=== PATIENT | male | born 1955 | race African-American/Black ===

== ENCOUNTER 2021-12-23 15:42 | Observation (INO) | payer OTHER ==
[2021-12-23 17:10] LABS: BASO % 0.8 % (0-2.0); EOS % 4.4 % (0-4.5); HEMATOCRIT 45.3 % (35.4-49); HEMOGLOBIN 15.1 GM/dL (11.7-16.9); LYMPH % 24.4 % (8-40); MCH 28.9 pg (25.7-33.7); MCHC 33.3 g/dl (32.0-35.9); MEAN CELL VOLUME 86.8 fl (80-96); MEAN PLT VOLUME 7.8 fl (7.5-11.1); NEUT % 63.4 % (42.8-82.8); PLATELET COUNT 276 10^3/uL (134-434); RBC 5.21 M/mm3 (4.00-5.60); RDW 14.2 % (11.9-15.9); WHITE BLOOD COUNT 6.1 K/mm3 (4.0-10.0)
[2021-12-23 17:16] LABS: INR 1.17 (0.83-1.09); PROTHROMBIN TIME (PATIENT) 13.5 SEC (9.7-13.0)
[2021-12-23 17:19] LABS: ACTIVATED PTT 35.8 SECONDS (25.2-36.5)
[2021-12-23 17:28] LABS: CALCIUM 9.2 mg/dL (8.5-10.1)
[2021-12-23 17:29] LABS: ALBUMIN 3.8 g/dl (3.4-5.0); BLOOD UREA NITROGEN 12.2 mg/dL (7-18)
[2021-12-23 17:33] LABS: BILIRUBIN,TOTAL 0.2 mg/dL (0.2-1); TOT PROT 7.7 g/dl (6.4-8.2)
[2021-12-23] MEDS: ACETAMINOPHEN 325 MG TABLET (FP) PO PRN (22:34)
[2021-12-23 23:26] VITALS: BMI 28.1
[2021-12-24 08:43] LABS: BASO % 0.6 % (0-2.0); EOS % 6.2 % (0-4.5); HEMATOCRIT 43.9 % (35.4-49); HEMOGLOBIN 14.6 GM/dL (11.7-16.9); LYMPH % 30.1 % (8-40); MCH 28.7 pg (25.7-33.7); MCHC 33.2 g/dl (32.0-35.9); MEAN CELL VOLUME 86.4 fl (80-96); MEAN PLT VOLUME 8.3 fl (7.5-11.1); MONO % 7.3 % (3.8-10.2); NEUT % 55.8 % (42.8-82.8); PLATELET COUNT 275 10^3/uL (134-434); RBC 5.09 M/mm3 (4.00-5.60); WHITE BLOOD COUNT 5.6 K/mm3 (4.0-10.0)
[2021-12-24 09:09] LABS: CALCIUM 9.3 mg/dL (8.5-10.1)
[2021-12-24 09:10] LABS: ALBUMIN 3.4 g/dl (3.4-5.0); BLOOD UREA NITROGEN 12.4 mg/dL (7-18)
[2021-12-24 09:13] LABS: CREATININE 0.8 mg/dL (0.55-1.3)
[2021-12-24 09:14] LABS: BILIRUBIN,TOTAL 0.5 mg/dL (0.2-1); TOT PROT 6.8 g/dl (6.4-8.2)
[2021-12-24] MEDS: ASPIRIN 81 MG CHEWABLE TABLETS PO SCH (11:35)
[2021-12-24] MEDS ORDERED: BRIMONIDINE TARTRATE 0.15% OPHTHALMIC 5 ML BOTTLE OU SCH (14:15)
[2021-12-24] MEDS: amLODIPine BESYLATE 5 MG TABLET (FP) PO SCH (15:38)
[2021-12-24] MEDS: TAMSULOSIN HCL 0.4 MG CAP PO SCH (16:50)
[2021-12-24] MEDS: ATORVASTATIN CA 10 MG TABLET (FP) PO SCH (21:12)
[2021-12-24] MEDS: ACETAMINOPHEN 325 MG TABLET (FP) PO PRN (21:12)
[2021-12-24] MEDS: LATANOPROST 0.005% OPHTH SOLN 2.5ML BOTTLE OU SCH (21:13)
[2021-12-25] MEDS: TAMSULOSIN HCL 0.4 MG CAP PO SCH (08:27)
[2021-12-25 09:26] LABS: CHOLESTEROL 143 mg/dL (50-200)
[2021-12-25 09:28] LABS: TRIGLYCERIDES 77 mg/dL (0-150)
[2021-12-25 09:29] LABS: LDL CHOLESTEROL (ONLY SJRH) 93 mg/dL (5-100)
[2021-12-25 09:30] LABS: HDL CHOLESTEROL 32 mg/dL (40-60)
[2021-12-25] MEDS: ASPIRIN 81 MG CHEWABLE TABLETS PO SCH (09:31)
[2021-12-25] MEDS: DORZOLAMIDE 2% HCL OPHTHALMIC SOLUTION 10 ML BOTTLE OU SCH (09:31)
[2021-12-25] MEDS: amLODIPine BESYLATE 5 MG TABLET (FP) PO SCH (09:31)
[2021-12-25] MEDS ORDERED: PATIENT'S OWN MEDICATION (NON-FORMULARY) (Brinzolamide/Brimonidine Tart [Simbrinza 1%-0.2% OU SCH (10:00)
[2021-12-25] MEDS ORDERED: BRIMONIDINE TARTRATE 0.2% OPHTHALMIC 5 ML BOTTLE OU SCH (10:00)
[2021-12-25] MEDS: ACETAMINOPHEN 325 MG TABLET (FP) PO PRN (15:37)
[2021-12-25] MEDS: ATORVASTATIN CA 10 MG TABLET (FP) PO SCH (21:37)
[2021-12-25] MEDS: LATANOPROST 0.005% OPHTH SOLN 2.5ML BOTTLE OU SCH (21:38)
[2021-12-26] MEDS: TAMSULOSIN HCL 0.4 MG CAP PO SCH (08:28)
[2021-12-26] MEDS: DORZOLAMIDE 2% HCL OPHTHALMIC SOLUTION 10 ML BOTTLE OU SCH (09:56)
[2021-12-26] MEDS: amLODIPine BESYLATE 5 MG TABLET (FP) PO SCH (09:56)
[2021-12-26] MEDS: ASPIRIN 81 MG CHEWABLE TABLETS PO SCH (09:56)
[2021-12-26] MEDS: ATORVASTATIN CA 10 MG TABLET (FP) PO SCH (21:41)
[2021-12-26] MEDS: LATANOPROST 0.005% OPHTH SOLN 2.5ML BOTTLE OU SCH (21:42)
[2021-12-26] MEDS: ACETAMINOPHEN 325 MG TABLET (FP) PO PRN (21:43)
[2021-12-27 02:32] VITALS: RESP 20
[2021-12-27] MEDS: amLODIPine BESYLATE 5 MG TABLET (FP) PO SCH (09:15)
[2021-12-27 10:34] VITALS: BP 133/68; PULSE 65; TEMP 98.7
[2021-12-27] MEDS ORDERED: REGADENOSON 0.4 MG/5 ML PRE-FILLED SYRINGE IVPUSH ONE ×2 (12:45→14:00)
[2021-12-27] MEDS ORDERED: AMINOPHYLLINE 250 MG/10 ML VIAL ONE (12:57)
[2021-12-27] MEDS ORDERED: AMINOPHYLLINE 250 MG/10 ML VIAL IVPUSH ONE (14:15)
[2021-12-27] MEDS: ASPIRIN 81 MG CHEWABLE TABLETS PO SCH (14:35)
[2021-12-27] MEDS: DORZOLAMIDE 2% HCL OPHTHALMIC SOLUTION 10 ML BOTTLE OU SCH (14:35)
[2021-12-27] MEDS: TAMSULOSIN HCL 0.4 MG CAP PO SCH (14:35)
== END 2021-12-27 17:25 | disposition home or self-care (01) ==
LOC: JER 15:42 → JERBED 17:52 → INTOOBSV 17:52 → UNDOADMOB 17:52 → OBSVTOIN 17:52 → JERBED 21:27 → J4W 21:27 → JERBED 12-24 10:46 → J4W 12-24 10:46
PROVIDERS: ADMIT Internal Medicine; ATTEND Internal Medicine
PROC: 3E033GC Introduction of Other Therapeutic Substance into Peripheral Vein, Percutaneous Approach (ICD-10-PCS; principal; 2021-12-24)
DX: R07.89 Other chest pain (principal); I10 Essential (primary) hypertension; E78.5 Hyperlipidemia, unspecified; G47.00 Insomnia, unspecified; R53.1 Weakness; Z92.3 Personal history of irradiation; C61 Malignant neoplasm of prostate; Z87.891 Personal history of nicotine dependence; Z86.011 Personal history of benign neoplasm of the brain
CPT/HCPCS: 0241U-QW; 36415; 71045-TC-FY; 78452-TC; 80053; 80061; 83036; 84484; 85025; 85610; 85730; 93005; 93010; 93017; 93306-TC; 96374; 96375; 99285-25; A9502; G0378

== ENCOUNTER 2022-06-16 04:49 | Day surgery (SDC) | payer OTHER ==
[2022-06-09 10:56] VITALS: BMI 27.9
[2022-06-16 10:33] VITALS: TEMP 97.4
[2022-06-16 17:05] VITALS: BP 143/64; PULSE 60; RESP 18
== END 2022-06-16 11:40 | disposition home or self-care (01) ==
LOC: JASU-ENDO 04:49
PROVIDERS: ATTEND Internal Medicine Gastroenterology
PROC: 0DJD8ZZ Inspection of Lower Intestinal Tract, Via Natural or Artificial Opening Endoscopic (ICD-10-PCS; principal; 2022-06-16 10:00)
DX: Z51.11 Encounter for antineoplastic chemotherapy (principal); K55.20 Angiodysplasia of colon without hemorrhage; K64.8 Other hemorrhoids

== ENCOUNTER 2022-07-23 18:24 | Inpatient (IN) | payer OTHER ==
[2022-07-23 20:08] LABS: BASO % 0.7 % (0-2.0); EOS % 5.9 % (0-4.5); HEMATOCRIT 38.8 % (35.4-49); HEMOGLOBIN 13.1 GM/dL (11.7-16.9); LYMPH % 23.5 % (8-40); MCH 28.6 pg (25.7-33.7); MCHC 33.6 g/dl (32.0-35.9); MEAN PLT VOLUME 7.7 fl (7.5-11.1); MONO % 7.6 % (3.8-10.2); NEUT % 62.3 % (42.8-82.8); PLATELET COUNT 237 10^3/uL (134-434); RBC 4.57 M/mm3 (4.00-5.60); RDW 13.9 % (11.9-15.9); WHITE BLOOD COUNT 4.8 K/mm3 (4.0-10.0)
[2022-07-23 20:35] LABS: ALBUMIN 3.6 g/dl (3.4-5.0); CALCIUM 9.2 mg/dL (8.5-10.1); MAGNESIUM 2.1 mg/dL (1.8-2.4)
[2022-07-23 20:38] LABS: CREATININE 0.8 mg/dL (0.55-1.3); PHOSPHOROUS 4.2 mg/dL (2.5-4.9)
[2022-07-23 20:40] LABS: BILIRUBIN,TOTAL 0.3 mg/dL (0.2-1); TOT PROT 7.2 g/dl (6.4-8.2)
[2022-07-24] MEDS ORDERED: ALBUTEROL SO4 HFA INHALER IH PRN (00:16)
[2022-07-24 02:50] VITALS: BMI 28.2
[2022-07-24] MEDS: ACETAMINOPHEN 1000 MG/100 ML BAG IVPB PRN ×2 (06:25→21:57)
[2022-07-24 07:33] LABS: BASO % 0.9 % (0-2.0); EOS % 7.3 % (0-4.5); HEMATOCRIT 39.2 % (35.4-49); HEMOGLOBIN 13.7 GM/dL (11.7-16.9); MCH 29.5 pg (25.7-33.7); MCHC 35.1 g/dl (32.0-35.9); MEAN CELL VOLUME 84.2 fl (80-96); MEAN PLT VOLUME 8.4 fl (7.5-11.1); MONO % 8.5 % (3.8-10.2); NEUT % 55.3 % (42.8-82.8); PLATELET COUNT 216 10^3/uL (134-434); RBC 4.66 M/mm3 (4.00-5.60); RDW 13.9 % (11.9-15.9); WHITE BLOOD COUNT 4.9 K/mm3 (4.0-10.0)
[2022-07-24 07:40] LABS: CHLORIDE 112 mmol/L (98-107); POTASSIUM 4.4 mmol/L (3.5-5.1); SODIUM 143 mmol/L (136-145)
[2022-07-24 07:44] LABS: ALBUMIN 3.4 g/dl (3.4-5.0); ANION GAP 5 MMOL/L (8-16); CALCIUM 8.9 mg/dL (8.5-10.1); CO2 26 mmol/L (21-32); GLUCOSE,RANDOM 102 mg/dL (74-106)
[2022-07-24 07:45] LABS: BLOOD UREA NITROGEN 10.4 mg/dL (7-18)
[2022-07-24 07:47] LABS: CREATININE 0.8 mg/dL (0.55-1.3); SGOT/AST 29 U/L (15-37)
[2022-07-24 07:48] LABS: ALK PHOS 139 U/L (45-117)
[2022-07-24 08:02] LABS: BILIRUBIN,TOTAL 0.5 mg/dL (0.2-1); SGPT/ALT 29 U/L (13-61)
[2022-07-24 09:12] LABS: CHOLESTEROL 117 mg/dL (50-200); HDL CHOLESTEROL 31 mg/dL (40-60); LDL CHOLESTEROL (ONLY DFH) 63 mg/dl (5-100)
[2022-07-24] MEDS: ASPIRIN COATED 81 MG TABLET.EC PO SCH (09:18)
[2022-07-24] MEDS: amLODIPine BESYLATE 5 MG TABLET (FP) PO SCH (09:18)
[2022-07-24] MEDS: TAMSULOSIN HCL 0.4 MG CAP PO SCH (09:18)
[2022-07-24] MEDS: PANTOPRAZOLE 40 MG TABLET PO SCH (09:18)
[2022-07-24] MEDS: ENOXAPARIN NA (PORCINE) 40 MG/0.4 ML DISP.SYRIN SQ SCH (09:19)
[2022-07-24] MEDS: ETODOLAC 400 MG PO SCH (10:07)
[2022-07-24] MEDS: ATORVASTATIN CA 10 MG TABLET (FP) PO SCH (21:46)
[2022-07-24] MEDS: LATANOPROST 0.005% OPHTH SOLN 2.5ML BOTTLE OD SCH (21:59)
[2022-07-25] MEDS: ACETAMINOPHEN 1000 MG/100 ML BAG IVPB PRN ×2 (03:41→21:50)
[2022-07-25] MEDS ORDERED: MAG HYDROX/AL HYDROX/SIMETH 30 ML UNIT-DOSE CUP PO ONE (03:57)
[2022-07-25] MEDS: ENOXAPARIN NA (PORCINE) 40 MG/0.4 ML DISP.SYRIN SQ SCH (09:24)
[2022-07-25] MEDS: amLODIPine BESYLATE 5 MG TABLET (FP) PO SCH (09:24)
[2022-07-25] MEDS: PANTOPRAZOLE 40 MG TABLET PO SCH (09:24)
[2022-07-25] MEDS: ASPIRIN COATED 81 MG TABLET.EC PO SCH (09:24)
[2022-07-25] MEDS: TAMSULOSIN HCL 0.4 MG CAP PO SCH (09:24)
[2022-07-25] MEDS: ETODOLAC 400 MG PO SCH (16:13)
[2022-07-25] MEDS: ATORVASTATIN CA 10 MG TABLET (FP) PO SCH (21:50)
[2022-07-25] MEDS: LATANOPROST 0.005% OPHTH SOLN 2.5ML BOTTLE OD SCH (21:56)
[2022-07-26] MEDS: amLODIPine BESYLATE 5 MG TABLET (FP) PO SCH (08:42)
[2022-07-26] MEDS: ACETAMINOPHEN 1000 MG/100 ML BAG IVPB PRN (08:42)
[2022-07-26] MEDS: TAMSULOSIN HCL 0.4 MG CAP PO SCH (08:43)
[2022-07-26] MEDS ORDERED: amLODIPine BESYLATE 5 MG TABLET (FP) PO ONE (08:51)
[2022-07-26] MEDS: ASPIRIN COATED 81 MG TABLET.EC PO SCH (09:09)
[2022-07-26] MEDS: PANTOPRAZOLE 40 MG TABLET PO SCH (09:10)
[2022-07-26] MEDS: ENOXAPARIN NA (PORCINE) 40 MG/0.4 ML DISP.SYRIN SQ SCH (09:10)
[2022-07-26] MEDS ORDERED: metoPROLOL SUCCINATE 25 MG TAB.SR.24H (FP) PO SCH (10:00)
[2022-07-26] MEDS: POLYETHYLENE GLYCOL (HEALTHYLAX) 3350 17 GM PACKET PO SCH (16:45)
[2022-07-26] MEDS: LATANOPROST 0.005% OPHTH SOLN 2.5ML BOTTLE OD SCH (21:32)
[2022-07-26] MEDS: ATORVASTATIN CA 10 MG TABLET (FP) PO SCH (21:32)
[2022-07-27] MEDS: ACETAMINOPHEN 1000 MG/100 ML BAG IVPB PRN (04:34)
[2022-07-27] MEDS: TAMSULOSIN HCL 0.4 MG CAP PO SCH (08:43)
[2022-07-27] MEDS: ASPIRIN COATED 81 MG TABLET.EC PO SCH (09:27)
[2022-07-27] MEDS: amLODIPine BESYLATE 10 MG TABLET (FP) PO SCH (09:27)
[2022-07-27] MEDS: POLYETHYLENE GLYCOL (HEALTHYLAX) 3350 17 GM PACKET PO SCH (09:27)
[2022-07-27] MEDS: PANTOPRAZOLE 40 MG TABLET PO SCH (09:27)
[2022-07-27] MEDS: ENOXAPARIN NA (PORCINE) 40 MG/0.4 ML DISP.SYRIN SQ SCH (09:27)
[2022-07-27] MEDS: traMADol HCL 50 MG TABLET PO PRN (10:51)
[2022-07-27] MEDS: LIDOCAINE 5% TOPICAL PATCH TP SCH (12:00)
[2022-07-27] MEDS: ATORVASTATIN CA 10 MG TABLET (FP) PO SCH (21:10)
[2022-07-27] MEDS: LIDOCAINE PATCH REMOVAL MC SCH (21:13)
[2022-07-27] MEDS: LATANOPROST 0.005% OPHTH SOLN 2.5ML BOTTLE OD SCH (21:14)
[2022-07-28] MEDS: traMADol HCL 50 MG TABLET PO PRN ×4 (03:05→19:54)
[2022-07-28] MEDS: TAMSULOSIN HCL 0.4 MG CAP PO SCH (08:35)
[2022-07-28 09:09] LABS: HEMATOCRIT 41.2 % (35.4-49); HEMOGLOBIN 14.4 GM/dL (11.7-16.9); MCH 29.3 pg (25.7-33.7); MCHC 34.9 g/dl (32.0-35.9); MEAN PLT VOLUME 8.1 fl (7.5-11.1); PLATELET COUNT 234 10^3/uL (134-434); RDW 13.7 % (11.9-15.9); WHITE BLOOD COUNT 4.2 K/mm3 (4.0-10.0)
[2022-07-28 09:31] LABS: ALBUMIN 3.4 g/dl (3.4-5.0); BILIRUBIN,TOTAL 0.4 mg/dL (0.2-1); BLOOD UREA NITROGEN 16.2 mg/dL (7-18); CALCIUM 9.3 mg/dL (8.5-10.1); CREATININE 0.9 mg/dL (0.55-1.3); POTASSIUM 4.3 mmol/L (3.5-5.1)
[2022-07-28] MEDS ORDERED: REGADENOSON 0.4 MG/5 ML PRE-FILLED SYRINGE IVPUSH ONE ×2 (09:40→11:45)
[2022-07-28] MEDS ORDERED: AMINOPHYLLINE 250 MG/10 ML VIAL IVPUSH ONE (10:38)
[2022-07-28] MEDS ORDERED: AMINOPHYLLINE 250 MG/10 ML VIAL ONE (10:49)
[2022-07-28] MEDS: POLYETHYLENE GLYCOL (HEALTHYLAX) 3350 17 GM PACKET PO SCH (11:28)
[2022-07-28] MEDS: ENOXAPARIN NA (PORCINE) 40 MG/0.4 ML DISP.SYRIN SQ SCH (11:30)
[2022-07-28] MEDS: LIDOCAINE 5% TOPICAL PATCH TP SCH (11:30)
[2022-07-28] MEDS: amLODIPine BESYLATE 10 MG TABLET (FP) PO SCH (11:31)
[2022-07-28] MEDS: ASPIRIN COATED 81 MG TABLET.EC PO SCH (11:31)
[2022-07-28] MEDS: PANTOPRAZOLE 40 MG TABLET PO SCH (11:31)
[2022-07-28] MEDS ORDERED: ACETAMINOPHEN 500 MG TABLET (FP) PO PRN (15:58)
[2022-07-28] MEDS ORDERED: CLOPIDOGREL BISULFATE 75 MG TABLET (FP) PO ONE (19:30)
[2022-07-28] MEDS: ATORVASTATIN CA 10 MG TABLET (FP) PO SCH (21:07)
[2022-07-28] MEDS: LIDOCAINE PATCH REMOVAL MC SCH (21:08)
[2022-07-28] MEDS: LATANOPROST 0.005% OPHTH SOLN 2.5ML BOTTLE OD SCH (21:09)
[2022-07-29] MEDS: traMADol HCL 50 MG TABLET PO PRN (05:53)
[2022-07-29] MEDS: TAMSULOSIN HCL 0.4 MG CAP PO SCH (08:01)
[2022-07-29 08:36] VITALS: RESP 18
[2022-07-29] MEDS: ASPIRIN COATED 81 MG TABLET.EC PO SCH (09:30)
[2022-07-29] MEDS: POLYETHYLENE GLYCOL (HEALTHYLAX) 3350 17 GM PACKET PO SCH (09:30)
[2022-07-29] MEDS: ENOXAPARIN NA (PORCINE) 40 MG/0.4 ML DISP.SYRIN SQ SCH (09:30)
[2022-07-29] MEDS: LIDOCAINE 5% TOPICAL PATCH TP SCH (09:30)
[2022-07-29] MEDS: amLODIPine BESYLATE 10 MG TABLET (FP) PO SCH (09:31)
[2022-07-29] MEDS: PANTOPRAZOLE 40 MG TABLET PO SCH (09:31)
[2022-07-29] MEDS ORDERED: CLOPIDOGREL BISULFATE 75 MG TABLET (FP) PO SCH (10:00)
[2022-07-29] MEDS ORDERED: metoPROLOL SUCCINATE 25 MG TAB.SR.24H (FP) PO SCH (12:45)
[2022-07-29 16:05] LABS: POTASSIUM 4.1 mmol/L (3.5-5.1)
[2022-07-29 16:06] LABS: CALCIUM 9.3 mg/dL (8.5-10.1)
[2022-07-29 16:07] LABS: ALBUMIN 3.8 g/dl (3.4-5.0); BLOOD UREA NITROGEN 13.2 mg/dL (7-18)
[2022-07-29 16:10] LABS: CREATININE 0.9 mg/dL (0.55-1.3)
[2022-07-29 16:11] LABS: BILIRUBIN,TOTAL 0.3 mg/dL (0.2-1)
[2022-07-29 16:12] LABS: TOT PROT 7.6 g/dl (6.4-8.2)
[2022-07-29 17:38] VITALS: BP 149/61; PULSE 70; TEMP 97.8
== END 2022-07-29 17:48 | disposition short-term general hospital (02) | DRG 303 ==
LOC: JER 18:24 → JERBED 20:42 → UNDOADMOB 20:42 → INTOOBSV 20:42 → JERBED 07-24 02:35 → J4W 07-24 02:35 → JERBED 07-24 11:19 → J4W 07-24 11:19 → OBSVTOIN 07-29 09:53
PROVIDERS: ADMIT Internal Medicine; ATTEND Internal Medicine
DX: I25.10 Atherosclerotic heart disease of native coronary artery without angina pectoris (principal); I24.8 Other forms of acute ischemic heart disease; R07.89 Other chest pain; I10 Essential (primary) hypertension; E78.5 Hyperlipidemia, unspecified; E11.9 Type 2 diabetes mellitus without complications; R94.39 Abnormal result of other cardiovascular function study; R53.1 Weakness; G70.00 Myasthenia gravis without (acute) exacerbation; Z85.46 Personal history of malignant neoplasm of prostate; Z86.73 Personal history of transient ischemic attack (TIA), and cerebral infarction without residual deficits
CPT/HCPCS: 36415; 71045-TC-FY; 76700-TC; 78452-TC; 80053; 80061; 82550; 82553; 83036; 83735; 84100; 84443; 84484; 85025; 85027; 93005; 93010; 93017; 99285-25; A9502; C9803-CS; G0378; J2785; U0003; U0005

== ENCOUNTER 2022-08-04 17:38 | Observation (INO) | payer OTHER ==
[2022-08-04 18:42] LABS: BASO % 0.5 % (0-2.0); EOS % 3.3 % (0-4.5); HEMATOCRIT 35.2 % (35.4-49); HEMOGLOBIN 12.1 GM/dL (11.7-16.9); LYMPH % 14.1 % (8-40); MCH 29.3 pg (25.7-33.7); MCHC 34.5 g/dl (32.0-35.9); MEAN PLT VOLUME 7.9 fl (7.5-11.1); MONO % 6.7 % (3.8-10.2); NEUT % 75.4 % (42.8-82.8); PLATELET COUNT 276 10^3/uL (134-434); RBC 4.14 M/mm3 (4.00-5.60); WHITE BLOOD COUNT 5.6 K/mm3 (4.0-10.0)
[2022-08-04 18:52] LABS: INR 1.3 (0.83-1.09)
[2022-08-04 18:55] LABS: ACTIVATED PTT 34.4 SECONDS (25.2-36.5)
[2022-08-04 19:04] LABS: POTASSIUM 3.9 mmol/L (3.5-5.1)
[2022-08-04 19:05] LABS: ALBUMIN 3.5 g/dl (3.4-5.0); BLOOD UREA NITROGEN 11.2 mg/dL (7-18); CALCIUM 9.4 mg/dL (8.5-10.1)
[2022-08-04 19:09] LABS: CREATININE 0.8 mg/dL (0.55-1.3)
[2022-08-04 19:11] LABS: BILIRUBIN,TOTAL 0.4 mg/dL (0.2-1); TOT PROT 7.1 g/dl (6.4-8.2)
[2022-08-04] MEDS ORDERED: ACETAMINOPHEN 1000 MG/100 ML BAG IVPB ONE (19:26)
[2022-08-04] MEDS ORDERED: ACETAMINOPHEN INJECTION 100 ML IVPB ONE (19:55)
[2022-08-05 00:52] VITALS: RESP 18
[2022-08-05] MEDS ORDERED: ALBUTEROL SO4 HFA INHALER IH PRN (02:38)
[2022-08-05 03:57] VITALS: BMI 27.1
[2022-08-05] MEDS ORDERED: INSULIN (NOVOLOG) ASPART 100 UNITS/ML 10ML VIAL ONE (06:33)
[2022-08-05] MEDS: INSULIN SLIDING SCALE (NOVOLOG) 1 VIAL SQ SCH ×3 (06:36→11:25)
[2022-08-05] MEDS ORDERED: metFORMIN HCL 500 MG TABLET (FP) PO SCH (07:00)
[2022-08-05 08:00] LABS: BASO % 0.6 % (0-2.0); EOS % 5.2 % (0-4.5); HEMATOCRIT 36.1 % (35.4-49); HEMOGLOBIN 12.5 GM/dL (11.7-16.9); LYMPH % 19.2 % (8-40); MCH 29.4 pg (25.7-33.7); MCHC 34.6 g/dl (32.0-35.9); MEAN CELL VOLUME 84.9 fl (80-96); MEAN PLT VOLUME 8.6 fl (7.5-11.1); PLATELET COUNT 270 10^3/uL (134-434); RBC 4.25 M/mm3 (4.00-5.60); WHITE BLOOD COUNT 4.9 K/mm3 (4.0-10.0)
[2022-08-05 08:13] LABS: POTASSIUM 3.8 mmol/L (3.5-5.1)
[2022-08-05 08:24] LABS: ALBUMIN 3.4 g/dl (3.4-5.0)
[2022-08-05 08:25] LABS: BILIRUBIN,TOTAL 0.5 mg/dL (0.2-1); BLOOD UREA NITROGEN 9.7 mg/dL (7-18); CREATININE 0.9 mg/dL (0.55-1.3); TOT PROT 7.1 g/dl (6.4-8.2)
[2022-08-05 08:27] LABS: CALCIUM 9.4 mg/dL (8.5-10.1)
[2022-08-05 08:51] VITALS: BP 117/56; PULSE 77; TEMP 98.8
[2022-08-05] MEDS ORDERED: ASPIRIN COATED 81 MG TABLET.EC PO SCH (10:00)
[2022-08-05] MEDS ORDERED: FAMOTIDINE 20 MG TABLET PO SCH (10:00)
[2022-08-05] MEDS ORDERED: CLOPIDOGREL BISULFATE 75 MG TABLET (FP) PO SCH (10:00)
[2022-08-05] MEDS ORDERED: amLODIPine BESYLATE 10 MG TABLET (FP) PO SCH (10:00)
[2022-08-05] MEDS ORDERED: TAMSULOSIN HCL 0.4 MG CAP PO SCH (10:00)
[2022-08-05] MEDS ORDERED: BRINZOLAMIDE OU SCH (14:00)
[2022-08-05] MEDS ORDERED: [UNRECOGNIZED DRUG - OTHER] OU SCH (14:00)
[2022-08-05] MEDS ORDERED: ATORVASTATIN CA 10 MG TABLET (FP) PO SCH (22:00)
[2022-08-05] MEDS ORDERED: ATORVASTATIN CA 80 MG TABLET (FP) PO SCH (22:00)
[2022-08-05] MEDS ORDERED: LATANOPROST 0.005% OPHTH SOLN 2.5ML BOTTLE OD SCH (22:00)
[2022-08-06] MEDS ORDERED: ISOSORBIDE MONONITRATE 30 MG TAB.SR.24H (FP) PO SCH (10:00)
[2022-08-06] MEDS ORDERED: metoPROLOL SUCCINATE 25 MG TAB.SR.24H (FP) PO SCH (10:00)
== END 2022-08-05 16:59 | disposition home or self-care (01) ==
LOC: JER 17:38 → UNDOADMOB 21:59 → JERBED 21:59 → INTOOBSV 08-05 02:39 → OBSVTOIN 08-05 02:39 → J4W 08-05 03:18 → JERBED 08-05 03:18 → J4W 08-05 09:25 → JERBED 08-05 09:25
PROVIDERS: ADMIT Internal Medicine; ATTEND Internal Medicine
PROC: 3E033NZ Introduction of Analgesics, Hypnotics, Sedatives into Peripheral Vein, Percutaneous Approach (ICD-10-PCS; principal; 2022-08-05)
DX: S30.1XXA Contusion of abdominal wall, initial encounter (principal); I25.10 Atherosclerotic heart disease of native coronary artery without angina pectoris; I10 Essential (primary) hypertension; Z85.46 Personal history of malignant neoplasm of prostate; J96.00 Acute respiratory failure, unspecified whether with hypoxia or hypercapnia; I63.9 Cerebral infarction, unspecified; D32.9 Benign neoplasm of meninges, unspecified; G70.00 Myasthenia gravis without (acute) exacerbation; R53.1 Weakness; Z87.891 Personal history of nicotine dependence; Z91.011 Allergy to milk products; Y99.8 Other external cause status
CPT/HCPCS: 36415; 71045-TC-FY; 76882-TC-RT-FY; 80053; 82962; 84484; 85025; 85610; 85730; 93005; 93010; 96374; 99285-25; C9803-CS; G0378; U0003; U0005

== ENCOUNTER 2023-12-30 03:45 | Day surgery (SDC) | payer OTHER ==
[2023-12-29 09:20] VITALS: BMI 27.6
[2023-12-30] MEDS ORDERED: BUPIVACAINE HCL/PF 0.5% (5MG/ML) 10 ML VIAL ONE (07:28)
[2023-12-30] MEDS ORDERED: LIDOCAINE 1%/EPI 1:100000 (20 ML MULTI DOSE VIAL) ONE (07:28)
[2023-12-30] MEDS ORDERED: PROPOFOL 20 ML ONE ×2 (07:47→08:33)
[2023-12-30] MEDS ORDERED: PHENYLEPHRINE HCL 10 MG/1 ML SINGLE DOSE VIAL ONE (07:47)
[2023-12-30] MEDS ORDERED: SUCCINYLCHOLINE CHLORIDE 200 MG/10 ML SYRINGE ONE (07:48)
[2023-12-30] MEDS ORDERED: MIDAZOLAM HCL 2 MG/2 ML SINGLE DOSE VIAL ONE (07:48)
[2023-12-30] MEDS: ceFAZolin SODIUM 1 GM VIAL IVPB ONE (08:40)
[2023-12-30] MEDS: LIDOCAINE 1%/EPI 1:100000 (50 ML MULTI DOSE VIAL) INF ONE ×2 (08:51)
[2023-12-30] MEDS: BUPIVACAINE HCL/PF 0.5% (5 MG/ML) 30 ML VIAL IJ ONE ×2 (08:51)
[2023-12-30] MEDS: MICROFIBRILLAR COLLAGEN 1 GM EACH TP ONE (09:10)
[2023-12-30] MEDS ORDERED: ALBUTEROL SO4 HFA INHALER IH PRN (10:20)
[2023-12-30] MEDS ORDERED: ACETAMINOPHEN INJECTION 100 ML ONE (10:34)
[2023-12-30] MEDS: LACTATED RINGERS SOLUTION 1,000 ML IV SCH (10:38)
[2023-12-30] MEDS: ACETAMINOPHEN 1000 MG/100 ML BAG IVPB SCH (10:38)
[2023-12-30] MEDS ORDERED: ONDANSETRON 4 MG/2 ML VIAL IVPUSH PRN (10:55)
[2023-12-30] MEDS: INSULIN ASPART SLIDING SCALE (NOVOLOG) 1 VIAL SQ SCH (12:26)
[2023-12-30] MEDS: PATIENT'S OWN MEDICATION (NON-FORMULARY) (Brinzolamide/Brimonidine Tart [Simbrinza 1%-0.2% OS SCH (18:47)
[2023-12-30] MEDS: DORZOLAMIDE 2% HCL OPHTHALMIC SOLUTION 10 ML BOTTLE OU SCH (21:09)
[2023-12-30] MEDS: ATORVASTATIN CA 80 MG TABLET (FP) PO SCH (21:09)
[2023-12-30] MEDS: BRIMONIDINE TARTRATE 0.2% OPHTHALMIC 5 ML BOTTLE OU SCH (21:10)
[2023-12-30] MEDS ORDERED: PATIENT'S OWN MEDICATION (NON-FORMULARY) (Alfuzosin Hcl [Alfuzosin Hcl Er] 10 MG Tab.Er.24 PO SCH (22:00)
[2023-12-30] MEDS: LATANOPROST 0.005% OPHTH SOLN 2.5ML BOTTLE OD SCH (22:53)
[2023-12-30] MEDS: oxyCODONE HCL 5 MG TABLET PO PRN (23:43)
[2023-12-31] MEDS: EMPAGLIFLOZIN (JARDIANCE) 25 MG TABLET PO SCH (06:45)
[2023-12-31] MEDS: TAMSULOSIN HCL 0.4 MG CAP PO SCH (09:16)
[2023-12-31 09:47] VITALS: BP 179/84; PULSE 79; RESP 18; TEMP 97.3
[2023-12-31] MEDS: ACETAMINOPHEN 500 MG TABLET (FP) PO SCH (11:58)
[2023-12-31] MEDS: metoPROLOL SUCCINATE 25 MG TAB.SR.24H (FP) PO SCH (11:58)
[2023-12-31] MEDS: amLODIPine BESYLATE 10 MG TABLET (FP) PO SCH (11:59)
[2023-12-31] MEDS: ISOSORBIDE MONONITRATE 30 MG TAB.SR.24H (FP) PO SCH (11:59)
[2023-12-31] MEDS: PANTOPRAZOLE 20 MG TABLET PO SCH (12:00)
== END 2023-12-31 14:00 | disposition home or self-care (01) ==
LOC: JASU-SURG 03:45 → JASUSAT 03:45 → J5S 16:40 → JASUSAT 12-31 14:00
PROVIDERS: ATTEND Surgery
PROC: 0GTG0ZZ Resection of Left Thyroid Gland Lobe, Open Approach (ICD-10-PCS; principal; 2023-12-30 08:00)
DX: C73 Malignant neoplasm of thyroid gland (principal)
CPT/HCPCS: 82962; 86850; 86900; 86901; 88307-TC; 88341-TC; 88342-TC; 93005; 93010; 94760; J0131

== ENCOUNTER 2024-01-11 04:55 | Emergency (ER) | payer OTHER ==
[2024-01-11 05:04] VITALS: TEMP 96.3; BMI 27.5
[2024-01-11 05:49] LABS: BASO % 0.8 % (0-2.0); EOS % 3.8 % (0-4.5); HEMATOCRIT 38.7 % (35.4-49); HEMOGLOBIN 12.8 GM/dL (11.7-16.9); LYMPH % 20.3 % (8-40); MCH 29.5 pg (25.7-33.7); MCHC 33.1 g/dl (32.0-35.9); MEAN PLT VOLUME 7.3 fl (7.5-11.1); MONO % 6.3 % (3.8-10.2); NEUT % 68.8 % (42.8-82.8); PLATELET COUNT 313 10^3/uL (134-434); RBC 4.35 M/mm3 (4.00-5.60); RDW 14.1 % (11.9-15.9); WHITE BLOOD COUNT 5.4 K/mm3 (4.0-10.0)
[2024-01-11 05:55] LABS: INR 1.18 (0.83-1.09); PROTHROMBIN TIME (PATIENT) 13.5 SEC (9.7-13.0)
[2024-01-11 05:58] LABS: ACTIVATED PTT 37.2 SECONDS (25.2-36.5)
[2024-01-11 06:09] LABS: POTASSIUM 3.6 mmol/L (3.5-5.1)
[2024-01-11 06:10] LABS: CALCIUM 9.5 mg/dL (8.5-10.1)
[2024-01-11 06:11] LABS: ALBUMIN 3.7 g/dl (3.4-5.0)
[2024-01-11 06:14] LABS: CREATININE 0.7 mg/dL (0.55-1.3)
[2024-01-11 06:16] LABS: BILIRUBIN,TOTAL 0.3 mg/dL (0.2-1); TOT PROT 7.1 g/dl (6.4-8.2)
[2024-01-11 09:14] VITALS: BP 148/66; PULSE 62; RESP 19
== END 2024-01-11 09:20 | disposition home or self-care (01) ==
LOC: JER 04:55
DX: R04.0 Epistaxis (principal); R07.89 Other chest pain; R42 Dizziness and giddiness
CPT/HCPCS: 36415; 71045-TC-FY; 80053; 84484; 85025; 85610; 85730; 86850; 86900; 86901; 93005; 93010; 99285-25